=== PATIENT | male | born 1955 | race Caucasian/White ===

== ENCOUNTER 2022-01-19 05:45 | Inpatient (IN) | payer OTHER, MEDICARE ==
[~2022-01-19] VITALS: Ht 167.6 cm; Wt 50.3 kg
[2022-01-19 05:50] VITALS: BP 187/97
--- NOTE | 2022-01-19 05:50 | NUR ---
66 yo/m biba from [facility] for ALOC x1 hour. Pt presents aox3, per AMT baseline is aox3, gcs14, answers some questions but not others, wet cough noted, denies chest pain, reports back pain. No known fall or head trauma. Pt has shunt to R upper arm, missed dialysis on monday. bs 80. pt was given clonidine 0.1mg at [address] [facility]. pmh: htn, cva, Epilepsy, copd, ESRD (dialysis T, , S), UTI, unspecified brain disorder, (see chart) allergies: ativan
--- NOTE | 2022-01-19 05:57 | NUR ---
BIBA TAKEN TO BED #10
--- NOTE | 2022-01-19 06:07 | NUR ---
CODE BRAIN INITIATED PER DR. YUSUF. RADIOLOGY NOTIFIED
--- NOTE | 2022-01-19 06:10 | NUR ---
Dr. Alexander examining patient.
--- NOTE | 2022-01-19 06:11 | NUR ---
Tiffanie moore in [facility] - 01/19/22 at 0611 by ROJELIO PT TAKEN TO CT FOR CODE BRAIN
--- NOTE | 2022-01-19 06:11 | NUR ---
pt to ct via jagdish
[2022-01-19 06:39] LABS: BASOPHILS # (AUTO) 0.2 K/uL (0.00-0.22); BASOPHILS % (AUTO) 1.4 % (0.0-2.0); EOSINOPHILS # (AUTO) 0.2 K/uL (0-0.4); EOSINOPHILS % (AUTO) 1.4 % (0.0-4.0); HEMATOCRIT 27.3 % (36-52); HEMOGLOBIN 8.9 g/dL (12.0-18.0); LYMPHOCYTES # (AUTO) 0.8 K/uL (2.0-11.5); LYMPHOCYTES % (AUTO) 6.5 % (20.5-51.1); MEAN CORPUSCULAR HEMOGLOBIN 31 pg (27-31); MEAN CORPUSCULAR HGB CONC 33 g/dL (33-37); MEAN CORPUSCULAR VOLUME 95.4 fL (80-94); MONOCYTES # (AUTO) 0.7 K/uL (0.8-1.0); MONOCYTES % (AUTO) 5.6 % (1.7-9.3); NEUTROPHILS # (AUTO) 11.1 K/uL (1.8-7.7); NEUTROPHILS % (AUTO) 85.1 % (42.2-75.2); PLATELET COUNT (AUTO) 264 K/uL (140-450); RED BLOOD CELL COUNT(AUTO) 2.86 MIL/uL (4.20-6.10); RED CELL DISTRIBUTION WIDTH 20.5 % (11.6-13.7); WHITE BLOOD COUNT (AUTO) 13.1 K/uL (4.8-10.8)
[2022-01-19 07:03] LABS: PROTHROMBIN TIME 10.6 secs (10.8-13.4)
--- NOTE | 2022-01-19 07:08 | NUR ---
pt bp 197/113, olivad made aware.
[2022-01-19] MEDS ORDERED: hydrALAZINE 20 MG/ML VIAL IVP ONE (07:10)
[2022-01-19 07:14] LABS: ALBUMIN 3.5 g/dL (3.4-5.0); ANION GAP 21.3 (8-16); ASPARTATE AMINOTRANSFERASE 15 U/L (15-37); CARBON DIOXIDE 26.1 mmol/L (21-32); CHLORIDE 96 mmol/L (98-107); GFR ARICAN-AMERICAN 6 mL/min (>90); GLUCOSE 89 mg/dL (74-106); SODIUM SERUM 137 mmol/L (136-145); TOTAL BILIRUBIN 0.8 mg/dL (0.0-1.0)
--- NOTE | 2022-01-19 07:15 | NUR ---
Pt report given to angela valera. Transfer of care at this time.
[2022-01-19 07:30] LABS: POTASSIUM 6.4 mmol/L (3.5-5.1); UREA NITROGEN, BLOOD 94 mg/dL (7-18)
[2022-01-19 07:31] LABS: CREATININE 10.7 mg/dL (0.6-1.3)
[2022-01-19] MEDS ORDERED: SODIUM ZIRCONIUM CYCLOSILICATE 10 GM POWD.PACK PO ONE (07:50)
[2022-01-19] MEDS ORDERED: DEXTROSE 50% 50 ML SYR IVP ONE (07:50)
[2022-01-19] MEDS ORDERED: INSULIN REGULAR, HUMAN 100 UNIT/ML VIAL SUBQ ONE (07:50)
[2022-01-19] MEDS ORDERED: SODIUM BICARBONATE 8.4% PFS 50 MEQ/50 ML SYR IVP ONE (07:50)
[2022-01-19] MEDS ORDERED: ONDANSETRON 4 MG/2 ML VIAL IVP PRN (09:20)
[2022-01-19] MEDS ORDERED: ACETAMINOPHEN 325 MG TAB PO PRN (09:20)
[2022-01-19 09:43] LABS: APPEARANCE,URINE CLEAR (CLEAR); BILIRUBIN,URINE NEGATIVE (NEGATIVE); BLOOD, URINE TRACE-I (NEGATIVE); COLOR,URINE YELLOW (YELLOW); LEUKOCYTE ESTERASE ,URINE NEGATIVE (NEGATIVE); NITRITE, URINE NEGATIVE (NEGATIVE); PH,URINE 8.5 (5.0-9.0); UGLUCOSE TRACE (NEGATIVE)
[2022-01-19 09:54] LABS: BARBITURATE, URINE NEGATIVE ng/ml (NEG <=200); BENZODIAZEPINE, URINE NEGATIVE ng/mL (NEG <=200); CANNABINOID, URINE NEGATIVE ng/mL (NEG <=50); COCAINE, URINE NEGATIVE ng/mL (NEG <=300); OPIATE, URINE NEGATIVE ng/mL (NEG <=2000); PHENCYCLIDINE SCREEN,URINE NEGATIVE ng/mL (NEG <=25)
--- NOTE | 2022-01-19 10:10 | NUR ---
picc line nurse at bedside
--- NOTE | 2022-01-19 10:34 | NUR ---
2 lumen picc line 39 in left upper arm, xray confirmed placement. line is okay to use md called for stat dialysis at this time.
[2022-01-19 11:47] VITALS: BP 157/108
--- NOTE | 2022-01-19 12:07 | NUR ---
Patient will be admitted to care of Emre THOMAS. Admited to Telemetry. Will go to room 111B. Belongings list completed. Report to TROY Rodas.
[2022-01-19 16:00] VITALS: BP 157/71
[2022-01-19] MEDS: EPOETIN ALFA-EPBX 10,000 UNITS/ML VIAL IV SCH (16:59)
--- NOTE | 2022-01-19 19:48 | NUR ---
SBAR REPORT GIVEN TO NIGHT RN, ALL CARES ENDORSED.
[2022-01-19 20:00] VITALS: BP 148/98
--- NOTE | 2022-01-19 20:00 | NUR ---
OPENING NOTE Pt presents AOX3, know's he is in the hospital but not sure why. pt has l u/a PICC. Pt has shunt to R upper arm with (+) thrill and bruit. pt had HD today and 2L was removed. Pt in bed with no distress and all safety measures are in place.
[2022-01-20] VITALS: BP 142/99
[2022-01-20] MEDS ORDERED: hydrALAZINE 20 MG/ML VIAL IVP PRN (05:05)
--- NOTE | 2022-01-20 07:15 | NUR ---
SBAR report received from night RN, all cares assumed.
[2022-01-20 07:22] LABS: BASOPHILS # (AUTO) 0.1 K/uL (0.00-0.22); BASOPHILS % (AUTO) 0.5 % (0.0-2.0); EOSINOPHILS # (AUTO) 0.1 K/uL (0-0.4); EOSINOPHILS % (AUTO) 0.5 % (0.0-4.0); HEMATOCRIT 26.6 % (36-52); HEMOGLOBIN 8.7 g/dL (12.0-18.0); LYMPHOCYTES # (AUTO) 0.7 K/uL (2.0-11.5); LYMPHOCYTES % (AUTO) 4.6 % (20.5-51.1); MEAN CORPUSCULAR HEMOGLOBIN 31 pg (27-31); MEAN CORPUSCULAR HGB CONC 33 g/dL (33-37); MEAN CORPUSCULAR VOLUME 94.9 fL (80-94); MONOCYTES # (AUTO) 0.9 K/uL (0.8-1.0); MONOCYTES % (AUTO) 6.2 % (1.7-9.3); NEUTROPHILS # (AUTO) 12.4 K/uL (1.8-7.7); NEUTROPHILS % (AUTO) 88.2 % (42.2-75.2); PLATELET COUNT (AUTO) 241 K/uL (140-450); RED CELL DISTRIBUTION WIDTH 20.6 % (11.6-13.7); WHITE BLOOD COUNT (AUTO) 14.1 K/uL (4.8-10.8)
[2022-01-20 07:45] LABS: ALBUMIN 3.2 g/dL (3.4-5.0); ANION GAP 19.7 (8-16); MAGNESIUM 3.1 mg/dL (1.8-2.4); POTASSIUM 4.7 mmol/L (3.5-5.1); TOTAL BILIRUBIN 0.7 mg/dL (0.0-1.0)
[2022-01-20 08:00] VITALS: BP 213/91
[2022-01-20] MEDS: DOCUSATE SODIUM 100 MG GELCAP PO SCH (08:05)
[2022-01-20 08:09] LABS: CREATININE 7.1 mg/dL (0.6-1.3)
--- NOTE | 2022-01-20 09:14 | NUR ---
PATIENT HAS BEEN SCREENED AND CATEGORIZED HIGH NUTRITION RISK. PATIENT WILL BE SEEN WITHIN 1-2 DAYS OF ADMISSION. 01/20/[address]
[2022-01-20] MEDS ORDERED: amLODIPine 5 MG TAB PO SCH (10:00)
[2022-01-20] MEDS: hydrALAZINE 20 MG/ML VIAL IVP PRN ×2 (10:42→17:24)
[2022-01-20 12:00] VITALS: BP 172/83
[2022-01-20] MEDS: MORPHINE SULFATE 4 MG/ML SYR IVP PRN ×3 (13:23→20:55)
[2022-01-20 16:00] VITALS: BP 190/110
--- NOTE | 2022-01-20 16:14 | NUR ---
01/20/22 RD INITIAL ASSESSMENT COMPLETED PLEASE REFER TO NUTRITION ASSESSMENT UNDER CARE ACTIVITY FOR ESTIMATED NUTRITIONAL NEEDS. 1. CONTINUE CARDIAC DIET TOLERATED -RECOMMEND ADDING RENAL RESTRICTIONS TO CURRENT DIET 2. MONITOR PO INTAKE AND WEIGHT CHANGES 3. RECOMMEND NEPRO BID AND YAIR BID PER RD PROTOCOL 4. RD TO FOLLOW-UP 2-3 DAYS, HIGH RISK RAMSES ADHIKARI, RD
--- NOTE | 2022-01-20 19:42 | NUR ---
SBAR REPORT GIVEN TO HARLEY SIMMONS, ALL CARES ENDORSED.
--- NOTE | 2022-01-20 19:45 | NUR ---
RECEIVED PATIENT FROM AM NURSE FOR CONTINUITY OF CARE. PT IS STABLE
[2022-01-20 20:00] VITALS: BP 188/77
[2022-01-20] MEDS: carvediloL 12.5 MG TAB PO SCH (20:56)
--- NOTE | 2022-01-20 21:30 | NUR ---
ALL SCHEDULED MEDICATIONS GIVEN,NO ADVERSE REACTIONS NOTED
--- NOTE | 2022-01-21 01:00 | NUR ---
PATIENT ASLEEP ALL SAFETY MEASURES IN PLAGE, NO DISTRESS NOTED
[2022-01-21 04:00] VITALS: BP 105/76
[2022-01-21] MEDS: hydrALAZINE 20 MG/ML VIAL IVP PRN ×2 (05:36→17:24)
[2022-01-21] MEDS: MORPHINE SULFATE 4 MG/ML SYR IVP PRN ×2 (05:37→15:44)
[2022-01-21 07:26] LABS: ALBUMIN 3.1 g/dL (3.4-5.0); ANION GAP 15.6 (8-16); CARBON DIOXIDE 27.6 mmol/L (21-32); MAGNESIUM 3.4 mg/dL (1.8-2.4); POTASSIUM 5.2 mmol/L (3.5-5.1); TOTAL BILIRUBIN 0.6 mg/dL (0.0-1.0)
--- NOTE | 2022-01-21 07:30 | NUR ---
RECEIVED REPORT FROM NIGHTSHIFT NURSE HARLEY FOR CONTINUITY OF CARE. PT IN STABLE CONDITION, A/OX3, BREATHING EVEN, REGULAR, AND UNLABORED ON 4L NC. PICC ON LEFT UPPER ARM NOTED, AV SHUNT ON RIGHT UPPER ARM BRUIT AND THRILL PRESENT. PT CONTINENT OF THE BOWEL AND BLADDER, DRESSINGS NOTED ON LEFT LOWER ARM, BUTTOCKS AND HEAD.
[2022-01-21 07:54] LABS: CREATININE 8.1 mg/dL (0.6-1.3)
[2022-01-21 08:00] VITALS: BP 204/85
[2022-01-21 08:13] LABS: BASOPHILS # (AUTO) 0.1 K/uL (0.00-0.22); BASOPHILS % (AUTO) 0.6 % (0.0-2.0); EOSINOPHILS # (AUTO) 0.4 K/uL (0-0.4); EOSINOPHILS % (AUTO) 3.7 % (0.0-4.0); HEMATOCRIT 26.5 % (36-52); HEMOGLOBIN 8.7 g/dL (12.0-18.0); LYMPHOCYTES # (AUTO) 0.8 K/uL (2.0-11.5); LYMPHOCYTES % (AUTO) 7.6 % (20.5-51.1); MEAN CORPUSCULAR HEMOGLOBIN 31 pg (27-31); MEAN CORPUSCULAR HGB CONC 33 g/dL (33-37); MEAN CORPUSCULAR VOLUME 95.1 fL (80-94); MONOCYTES # (AUTO) 0.9 K/uL (0.8-1.0); MONOCYTES % (AUTO) 8.1 % (1.7-9.3); NEUTROPHILS # (AUTO) 8.9 K/uL (1.8-7.7); PLATELET COUNT (AUTO) 212 K/uL (140-450); RED BLOOD CELL COUNT(AUTO) 2.79 MIL/uL (4.20-6.10); WHITE BLOOD COUNT (AUTO) 11.1 K/uL (4.8-10.8)
[2022-01-21] MEDS ORDERED: ISOSORBIDE MONONITRATE 30 MG TABER PO SCH (08:40)
[2022-01-21] MEDS: HYDROcodone/APAP 5/325 MG 1 TAB TAB PO PRN ×2 (08:44→17:19)
[2022-01-21] MEDS: carvediloL 12.5 MG TAB PO SCH ×2 (08:44→21:02)
[2022-01-21] MEDS: DOCUSATE SODIUM 100 MG GELCAP PO SCH (08:44)
[2022-01-21] MEDS: amLODIPine 5 MG TAB PO SCH (08:45)
--- NOTE | 2022-01-21 08:45 | NUR ---
RUG RENOVATOR REPORTED PT'S BP 204/85 AFTER RETESTING 2X. PAGED [address] STANTON CONCERNING PT ALREADY HAVING RECEIVED PRN HYDRALAZINE 10MG Q4HR AT 0536 AND THE REASSESSMENT AT 0627 SHOWED THE BP AT 105/76. DR. STANTON ORDERED ISOSORBIDE MONONITRATE 30MG PO ONCE. PT WAS ALSO COMPLAINING OF SEVERE HEADACHE 9/ AND GIVEN PRN NORCO.
--- NOTE | 2022-01-21 09:08 | NUR ---
WOUND CARE EVALUATION NOTE: WOUND ASSESSMENT DONE ON THIS 66 Y/O PT ADMITTED WITH HYPERTENSIVE SBP 180S. PT. IS FROM SNF WITH PAST MEDICAL HX INCLUDES CHF, COPD, END-STAGE RENAL DISEASE ON HD, PREVIOUS CVA WITH RIGHT SIDED HEMIAPLASIA, THYROID DISEASE, BPH, HEPATITIS, ANEMIA, ASTHMA, CHRONIC ENCEPHALOPATHY. ALL ABOVE INFORMATION OBTAINED FROM ADMISSION H&P. PT. ADMITTED WITH LOW KATHERINE SCALE AND SACRAL PRESSURE INJURY AND MULTIPLE SKIN TEARS TO ARMS. DRY SCABS TO TRUNK OF BODY AND EXTREMITIES.DRY STABLE SCABS. OVERALL SKIN THIN FRAGILE AND EASILY TO TORN. WITH BMI 17.9.PLAN OF CARE DISCUSSED WITH PT. PT VERBALIZES UNDERSTANDING, NEED REINFORCEMENT. INTEGUMENTARY: -MULTIPLE SKIN TEARS TO LEFT ARM WITH LARGEST TO LEFT ELBOW 5X3X0.1CM WOUND BEDS PINK AND MOIST MARILEE-WOUND SKIN ECCHYMOSIS, THIN. PAIN 0/10 -SACRAL COCCYX PRESSURE INJURY 5X5CM NON-BLANCHABLE REDNESS, COCCYX BONE SKIN THIN AND MOIST, INTACT. -BILATERAL HEELS BLANCHABLE REDNESS, MUSHY RECOMMENDATIONS: -CLEANSE SKIN TEARS TO EXTREMITIES APPLY ADAPTIC DRESSING AND COVER WITH DRY DRESSING QD AND PRN IF SOILING - APPLY SKIN PREP TO RIGHT AND LEFT HEELS BID AND TRANSLATOR INTERPRETER, OFFLOADING WITH HEEL RAISERS -APPLY FORM DRESSING TO SACRALCOCCYX DAILY AND PRN IF SOILING -POSITIONING: TURN AND REPOSITION PATIENT Q 2H OR SOONER USE PILLOWS TO KEEP BONY PROMINENCES FROM DIRECT CONTACT WITH SURFACES USE REPOSITIONING WEDGES TO PROVIDE 30-DEGREE ANGLE FOR SIDE LYING POSITIONS OFFLOADING OR FOAM DRESSING TO ALL TUBING TO PREVENT MEDICAL DEVICES RELATED PRESSURE INJURY -RE-EVALUATING AND MANAGING INCONTINENCE MONITOR SKIN CONDITION DURING POSITION CHANGE DO NOT MASSAGE REDNESS, BONY PROMINENCES FREQUENT MARILEE-CARE AND PROVIDE BARRIER CREAMS PRN IF SOILING MOISTURE CONTROL BY OFFER BED SAILNAS/URINAL /ABSORBENT PAD TO WICK AND HOLD MOISTURE KEEP SKIN DRY AND PROTECT FROM FRICTION -MANAGE FRICTION/SHEAR/MOBILITY KEEP HOB AT THE LOWEST LEVEL OF ELEVATION NO MORE THAN 30 DEGREES UNLESS OTHERWISE CONTRAINDICATED USE LIFT SHEET OR TRANSFER DEVICE TO MOVE PATIENT AND PREVENT LATERAL SHEER. PROTECT HEELS, ELBOWS BONY PROMINENCES WITH SKIN BERRIES OR FOAM DRESSING IF EXPOSED TO FRICTION OFFLOAD BILATERAL HEELS BY PLACING PILLOWS UNDER CALVES AT ALL TIMES, UNLESS OTHERWISE CONTRAINDICATED -PRESSURE REDISTRIBUTION SURFACE THERAPY HENOK ISOFLEX MATTRESS -NUTRITION: PLEASE FOLLOW RD RECOMMENDATIONS AND OFFER NUTRITION SUPPLEMENTS IF ORDERED.
--- NOTE | 2022-01-21 09:50 | NUR ---
REASSESSED PT'S BP, READING SHOWS IT AT 94/54.
--- NOTE | 2022-01-21 12:07 | NUR ---
REASSESSED PT'S BP. BP 120/60.
[2022-01-21] MEDS: EPOETIN ALFA-EPBX 10,000 UNITS/ML VIAL IV SCH (13:30)
--- NOTE | 2022-01-21 14:00 | NUR ---
PT VISUALLY ASSESSED, NO SIGNS OF DISTRESS NOTED.
--- NOTE | 2022-01-21 14:04 | NUR ---
DC PLANNIN YRS OLD MALE PATIENT WAS ADMITTED FROM [facility] WITH A DX OF FLUID OVERLOAD /ENCEPHALOPATHY. PATIENT HAS A HX OF CHF,COPD, ESRD ON HEMODIALYSIS. CXRAY SHOWED BILATERAL INTERSTITIAL AND PATCHY HAZY OPACITIES, SUSPICIOUS FOR PULMONARY EDEMA. CT BRAIN NO EVIDENCE OF ACUTE INTRACRANIAL HEMORRHAGE. ADMINISTERED IVF, IV ABX LEVAQUIN AND CONTINUED HOME MEDS. CONSULTED WITH NEPHRO. DC PLAN TO RETURN TO [facility] WHEN STABLE. CM TO FOLLOW Addendum: 01/24/22 at 1429 by Brenda Dao RN DC PLANNING: BP STILL HIGH BP 174/94. PER NEPHRO WILL NEED FREQUENT DIALYSIS FOR VOLUME MANAGEMENT, CONTINUED ADJUSTMENTS TO BP MEDS. CM TO FOLLOW Addendum: 01/25/22 at 1304 by Brenda Dao RN DC PLANNING: PATIENT GOT ACCEPTED AT [facility] CAN GO TO ROOM 111B UNDER THE CARE OF DR CALVILLO. ARRANGED TRANSPORT WITH [facility]SP[facility] DIPLOMATIC INTERPRETER TIME 1500. NOTIFIED RAUL SIMMONS. Addendum: 01/25/22 at 1441 by Brenda Dao RN DC PLANNING: CALLED [facility] SPOKE WITH THE INTAKE NOTIFIED HER THAT PT HAD DIALYSIS YESTERDAY 01/24/22 AND WILL BE DISCHARGED TO [facility] TODAY PER INTAKE PT WILL CONTINUE HD ON TTHS AT 10:00 AM, NO NEED TO CHANGE DIALYSIS DATE AND TIME. CALLED [facility]SP[facility] FOR HEMODIALYSIS WILL BE THE SAME. CM TO FOLLOW
--- NOTE | 2022-01-21 16:00 | NUR ---
PT VISUALLY ASSESSED, NO SIGNS OF DISTRESS NOTED.
--- NOTE | 2022-01-21 17:24 | NUR ---
PER HOME HEALTH TRAVEL OT, PT'S BP WAS 165/75 AND COMPLAINING OF HEADACHE 8/. PRN HYDRALAZINE AND NORCO GIVEN.
--- NOTE | 2022-01-21 18:44 | NUR ---
REASSESSED PT'S BP, BP WAS 194/79. DR. STANTON WAS PAGED.
--- NOTE | 2022-01-21 19:15 | NUR ---
ENDORSED PT TO NIGHTSHIFT NURSE FOR CONTINUITY OF CARE. NIGHTSHIFT AWARE OF PT'S LAST BP AND AWAITING PAGE FROM DR. STANTON.
--- NOTE | 2022-01-21 19:16 | NUR ---
RECEIVED ENDORSEMENT FROM TROY IVORY FOR CONTINUITY OF CARE. PATIENT IS STABLE AND AWAKE. A&OX3. SOME CONFUSION NOTED. ABLE TO FOLLOW COMMANDS. VERBALLY RESPONSIVE AND ABLE TO COMMUNICATE NEEDS. DENIES PAIN. ON 4L VIA NC WITH NO APPARENT S/SX OF ACUTE DISTRESS. RESPIRATIONS EVEN AND UNLABORED. ON BEDREST. INCONTINENT OF VOID AND BM BUT HAS A BEDSIDE URINAL. PATIENT HAS ARCADIO PICC LINE PATENT/INTACT SL. AV THURMAN IN MICHEAL. PER TROY IVORY, PATIENT HAD A HD SESSION DONE TODAY WITH AN OUTPUT OF 2.5L. PLAN OF CARE AND COMMUNICATION BOARD UPDATED. ALL SAFETY MEASURES IN PLACE. BED IN LOW/LOCKED POSITION. CALL LIGHT WITHIN REACH. WILL CONTINUE TO MONITOR.
[2022-01-21 20:00] VITALS: BP 97/66
--- NOTE | 2022-01-21 21:10 | NUR ---
REDIRECTED PATIENT BACK TO BED. SOME CONFUSION NOTED. RE-ORIENTED TO TIME AND PLACE. ADMINISTERED SCHEDULED MEDICATIONS PER MD ORDER. TOLERATED WELL. DENIES PAIN. RESPIRATIONS EVEN AND UNLABORED WITH NO APPARENT S/SX OF ACUTE DISTRESS. SNACKS PROVIDED PER REQUEST. COMMUNICATION BOARD UPDATED. ALL SAFETY MEASURES IN PLACE. CALL LIGHT WITHIN REACH. WILL CONTINUE TO MONITOR.
[2022-01-21] MEDS: lisinopriL 10 MG TAB PO SCH (22:00)
[2022-01-21] MEDS ORDERED: QUEtiapine FUMARATE 25 MG TAB PO PRN (22:10)
--- NOTE | 2022-01-21 22:10 | NUR ---
PATIENT KEEPS YELLING "HELP ME" REPETITIVELY. REORIENTED PATIENT TO TIME AND PLACE. PROVIDED THERAPEUTIC ENVIRONMENT BY REPOSITIONING FOR COMFORT AND DIMMING LIGHTS BUT PATIENT APPEARS TO BE RESTLESS AND KEEPS GETTING OUT OF BED. CONTACTED DR. STANTON FOR PRN MEDICATION. ADMINISTERED AND TOLERATED WELL. WILL CONTINUE TO MONITOR.
--- NOTE | 2022-01-21 23:05 | NUR ---
PATIENT IS AWAKE AND STABLE. PATIENT APPEARS TO BE SLIGHTLY CALMER BUT STILL ATTEMPTING TO GET OUT OF BED. REDIRECTED PATIENT TO TIME AND PLACE. PATIENT KEEPS STATING, "I WANT TO GO HOME..." PATIENT LISTENED TO VERBAL COMMAND TO STAY IN BED. DENIES PAIN. RESPIRATIONS EVEN AND UNLABORED WITH NO APPARENT S/SX OF ACUTE DISTRESS. COMMUNICATION BOARD UPDATED. ALL SAFETY MEASURES IN PLACE. CALL LIGHT WITHIN REACH. WILL CONTINUE TO MONITOR.
[2022-01-22] MEDS: QUEtiapine FUMARATE 25 MG TAB PO SCH ×2 (00:58→21:09)
--- NOTE | 2022-01-22 01:10 | NUR ---
PATIENT REMAINS TO BE RESTLESS AND ATTEMPTS TO GET OUT OF BED. RE-ORIENTED TO TIME AND PLACE. CONTACTED DR. STANTON ABOUT SEROQUEL NOT EFFECTIVE. PER DR. STANTON, ADMINISTER ANOTHER SEROQUEL 25MG ONCE. TOLERATED WELL. DENIES PAIN. RESPIRATIONS EVEN AND UNLABORED WITH NO APPARENT S/SX OF ACUTE DISTRESS. COMMUNICATION BOARD UPDATED. ALL SAFETY MEASURES IN PLACE. CALL LIGHT WITHIN REACH. WILL CONTINUE TO MONITOR.
--- NOTE | 2022-01-22 03:10 | NUR ---
PATIENT IS AWAKE AND RESTING IN BED. APPEARS TO BE CALMER AND DOES NOT ATTEMPT TO GET OUT OF BED AT THIS TIME. FLACC=0. RESPIRATIONS EVEN AND UNLABORED WITH NO APPARENT S/SX OF ACUTE DISTRESS. COMMUNICATION BOARD UPDATED. ALL SAFETY MEASURES IN PLACE. CALL LIGHT WITHIN REACH. WILL CONTINUE TO MONITOR.
[2022-01-22 04:00] VITALS: BP 148/77
--- NOTE | 2022-01-22 05:15 | NUR ---
PT IS AWAKE AND STABLE. SOME CONFUSION NOTED. REORIENTED TO TIME AND HOSPITAL ENVIRONMENT. PT WAS NOT ABLE TO GET ANY SLEEP AT ALL THROUGHOUT THE NIGHT. DENIES PAIN. RESPIRATIONS EVEN AND UNLABORED W NO APPARENT S/SX OF ACUTE DISTRESS. ALL NEEDS MET. COMMUNICATION BOARD UPDATED. ALL SAFETY MEASURES IN PLACE. CALL LIGHT WITHIN REACH. WILL CONTINUE TO MONITOR.
--- NOTE | 2022-01-22 07:10 | NUR ---
ENDORSED PT TO TIM DENT FOR CONTINUITY OF CARE. PT IS STABLE.
--- NOTE | 2022-01-22 07:11 | NUR ---
RECEIVED REPORT FROM ENDLESS STEAMER TENDER NURSE FOR CONTINUITY OF CARE. PT IS AWAKE, IN BED. RESPIRATIONS EVEN AND UNLABORED ON ROOM AIR. NO DISTRESS NOTED. PT HAS PICC LINE AT ARCADIO DOUBLE LUMEN, MICHEAL AV SHUNT. PT IS INCONTINENT TO BOTH BOWEL AND BLADDER, HAS URINAL AT BEDSIDE. NOTED DRESSINGS ON LEFT LOWER ARM, BUTTOCKS AND HEAD. CALL LIGHT WITHIN REACH. SAFETY PRECAUTIONS IN PLACE. WILL CONTINUE TO MONITOR.
[2022-01-22 07:16] LABS: ALBUMIN 3.3 g/dL (3.4-5.0); ANION GAP 15.5 (8-16); CARBON DIOXIDE 26.8 mmol/L (21-32); MAGNESIUM 2.9 mg/dL (1.8-2.4); POTASSIUM 4.3 mmol/L (3.5-5.1); TOTAL BILIRUBIN 0.6 mg/dL (0.0-1.0)
--- NOTE | 2022-01-22 07:24 | NUR ---
RECEIVED CRITICAL VALUE FROM LAB. BUN 61 AND CREATININE 5.7. PT IS HEMODIALYSIS PT.
[2022-01-22 07:25] LABS: CREATININE 5.7 mg/dL (0.6-1.3)
[2022-01-22 07:30] LABS: HEMATOCRIT 26.8 % (36-52); HEMOGLOBIN 8.7 g/dL (12.0-18.0); MEAN CORPUSCULAR HEMOGLOBIN 31 pg (27-31); MEAN CORPUSCULAR HGB CONC 32 g/dL (33-37); PLATELET COUNT (AUTO) 182 K/uL (140-450); RED BLOOD CELL COUNT(AUTO) 2.82 MIL/uL (4.20-6.10); RED CELL DISTRIBUTION WIDTH 20.3 % (11.6-13.7); WHITE BLOOD COUNT (AUTO) 18.2 K/uL (4.8-10.8)
[2022-01-22 08:00] VITALS: BP 202/101
--- NOTE | 2022-01-22 08:00 | NUR ---
PT REQUESTED TO BE PLACED ON NC. REPOSITIONED PT. PT SITTING COMFORTABLY IN BED. NO DISTRESS NOTED. SAFETY PRECAUTIONS IN PLACE.
[2022-01-22] MEDS: DOCUSATE SODIUM 100 MG GELCAP PO SCH (09:13)
[2022-01-22] MEDS: lisinopriL 10 MG TAB PO SCH (09:14)
[2022-01-22] MEDS: amLODIPine 5 MG TAB PO SCH (09:14)
[2022-01-22] MEDS: carvediloL 12.5 MG TAB PO SCH ×2 (09:15→21:09)
--- NOTE | 2022-01-22 09:37 | NUR ---
ADMINISTERED SCHEDULED MORNING MEDS. PT TEACHING ABOUT MEDS GIVEN. PT VERBALIZED UNDERSTANDING. PT ON 2L NC SATTING AT 99%. PT ON HIGH MICHAELS'S IN BED. CALL LIGHT WITHIN REACH. SAFETY PRECAUTIONS IN PLACE. WILL CONTINUE TO MONITOR.
[2022-01-22 10:00] LABS: LYMPHOCYTES % (AUTO) 3.8 % (20.5-51.1); PLATELET COUNT,MANUAL 176 K/uL (150-450)
[2022-01-22 10:01] LABS: BASOPHILS % (AUTO) 0.1 % (0.0-2.0); EOSINOPHILS % (AUTO) 0.1 % (0.0-4.0); LYMPHOCYTES # (AUTO) 0.7 K/uL (2.0-11.5); LYMPHOCYTES % (MANUAL) 2 % (20-46); MONOCYTES # (AUTO) 1.3 K/uL (0.8-1.0); MONOCYTES % (MANUAL) 6 % (5-12); MYELOCYTES % 1 % (0-0); NEUTROPHILS # (AUTO) 16.2 K/uL (1.8-7.7)
[2022-01-22] MEDS: hydrALAZINE 20 MG/ML VIAL IVP PRN (10:27)
--- NOTE | 2022-01-22 10:27 | NUR ---
PT SBP AT 200, HR 70. RN MILAGROS ADMINISTERED IV HYDRALAZINE. NO ADVERSE REACTION NOTED. WILL REASSESS AFTER AN HR.
--- NOTE | 2022-01-22 13:47 | NUR ---
DID ROUNDS. PT SITTING IN BED, EATING LUNCH. NO DISTRESS NOTED. CALL LIGHT WITHIN REACH. SAFETY PRECAUTIONS IN PLACE. WILL CONTINUE TO MONITOR.
--- NOTE | 2022-01-22 15:32 | NUR ---
ROUNDED ON PT FOR LITHOGRAPHIC PRINTING MACHINIST FLORSAN, PT COMPLAINED OF HEADACHE, PRN TYLENOL WAS GIVEN.
[2022-01-22 16:00] VITALS: BP 169/83
--- NOTE | 2022-01-22 16:32 | NUR ---
REASSESSING PT PAIN. PT STATED HIS PAIN NOW 9/10 AT THE BACK OF HIS HEAD. SBP AT 160. HR 73. WILL INFORM RN.
[2022-01-22] MEDS: MORPHINE SULFATE 4 MG/ML SYR IVP PRN (16:59)
--- NOTE | 2022-01-22 16:59 | NUR ---
RN ADMINISTERED PRN PAIN MED ORDERED.
--- NOTE | 2022-01-22 17:21 | NUR ---
PT TRYING TO GET OUT OF BED. PT STATED HE WANTS TO GO TO THE REST ROOM. REDIRECTED PT TO GO BACK TO BED. PT HAD LARGE BOWEL MOVEMENT. CLEAN PT, PT REMAINED CLEAN AND DRY. CALL LIGHT WITHIN REACH. SAFETY PRECAUTIONS IN PLACE.
--- NOTE | 2022-01-22 19:27 | NUR ---
ENDORSED PT TO OIM ARCHITECT NURSE FOR CONTINUITY OF CARE. ALL NEEDS MET THROUGHOUT SHIFT. PT IS STABLE.
--- NOTE | 2022-01-22 19:28 | NUR ---
RECEIVED ENDORSEMENT FROM TIM DENT FOR CONTINUITY OF CARE. PT IS AWAKE AND STABLE. A&OX2. SOME CONFUSION NOTED. VERBALLY RESPONSIVE AND ABLE TO FOLLOW COMMANDS. ON 2L VIA NC W NO APPARENT S/SX OF ACUTE DISTRESS. RESPIRATIONS EVEN AND UNLABORED. DENIES PAIN. ON BEDREST. ARCADIO PICCLINE PATENT/INTACT SL. INCONTINENT OF VOID AND BM. PLAN OF CARE AND COMMUNICATION BOARD UPDATED. ALL SAFETY MEASURES IN PLACE. BED IN LOW/LOCKED POSITION. CALL LIGHT WITHIN REACH. WILL CONTINUE TO MONITOR.
[2022-01-22 20:00] VITALS: BP 148/91
--- NOTE | 2022-01-22 21:10 | NUR ---
ADMINISTERED SCHEDULED MEDICATION PER MD ORDER. TOLERATED WELL. DENIES PAIN. RESPIRATIONS EVEN AND UNLABORED W NO APPARENT S/SX OF ACUTE DISTRESS. SNACKS PROVIDED PER PT REQUEST. COMMUNICATION BOARD UPDATED. ALL SAFETY MEASURES IN PLACE. CALL LIGHT WITHIN REACH. WILL CONTINUE TO MONITOR.
--- NOTE | 2022-01-22 23:10 | NUR ---
PT IS STABLE AND ASLEEP. CHEST IS RISING AND FALLING EVENLY. RESPIRATIONS EVEN AND UNLABORED W NO APPARENT S/SX OF ACUTE DISTRESS. COMMUNICATION BOARD UPDATED. ALL SAFETY MEASURES IN PLACE. CALL LIGHT WITHIN REACH. WILL CONTINUE TO MONITOR.
--- NOTE | 2022-01-23 01:10 | NUR ---
CLEANED AND CHANGED PT. TOLERATED WELL. DENIES PAIN. RESPIRATIONS EVEN AND UNLABORED W NO APPARENT S/SX OF ACUTE DISTRESS. COMMUNICATION BOARD UPDATED. ALL SAFETY MEASURES IN PLACE. CALL LIGHT WITHIN REACH. WILL CONTINUE TO MONITOR.
--- NOTE | 2022-01-23 03:10 | NUR ---
PT IS STABLE AND ASLEEP IN SUPINE POSITION. CHEST IS RISING AND FALLING SYMMETRICALLY. RESPIRATIONS EVEN AND UNLABORED W NO APPARENT S/SX OF ACUTE DISTRESS. COMMUNICATION BOARD UPDATED. ALL SAFETY MEASURES IN PLACE. CALL LIGHT WITHIN REACH. WILL CONTINUE TO MONITOR.
[2022-01-23 04:00] VITALS: BP 158/93
--- NOTE | 2022-01-23 05:10 | NUR ---
CLEANED AND CHANGED PT'S LINEN, GOWN, AND PULLUP. TOLERATED WELL. DENIES PAIN. RESPIRATIONS EVEN AND UNLABORED W NO APPARENT S/SX OF ACUTE DISTRESS. ALL NEEDS MET AT THIS TIME. COMMUNICATION BOARD UPDATED. ALL SAFETY MEASURES IN PLACE. CALL LIGHT WITHIN REACH. WILL CONTINUE MONITOR.
--- NOTE | 2022-01-23 05:49 | NUR ---
Patient's Plan of Care was discussed and reviewed with MEMORIAL DESIGNER: KEITH/ Emily BOWMAN RN
[2022-01-23] MEDS: guaiFENesin/CODEINE 100/10MG 5 ML UDC PO PRN ×2 (07:01→23:59)
--- NOTE | 2022-01-23 07:10 | NUR ---
ENDORSED PT TO TROY CHACKO FOR CONTINUITY OF CARE. PT IS STABLE.
[2022-01-23 07:20] LABS: BASOPHILS % (AUTO) 0.3 % (0.0-2.0); EOSINOPHILS # (AUTO) 0.1 K/uL (0-0.4); EOSINOPHILS % (AUTO) 0.5 % (0.0-4.0); HEMOGLOBIN 8.5 g/dL (12.0-18.0); LYMPHOCYTES # (AUTO) 0.7 K/uL (2.0-11.5); LYMPHOCYTES % (AUTO) 5.2 % (20.5-51.1); MEAN CORPUSCULAR HEMOGLOBIN 31 pg (27-31); MEAN CORPUSCULAR HGB CONC 33 g/dL (33-37); MEAN CORPUSCULAR VOLUME 94.4 fL (80-94); MONOCYTES # (AUTO) 0.7 K/uL (0.8-1.0); MONOCYTES % (AUTO) 5.5 % (1.7-9.3); NEUTROPHILS # (AUTO) 11.9 K/uL (1.8-7.7); NEUTROPHILS % (AUTO) 88.5 % (42.2-75.2); PLATELET COUNT (AUTO) 200 K/uL (140-450); RED BLOOD CELL COUNT(AUTO) 2.76 MIL/uL (4.20-6.10); WHITE BLOOD COUNT (AUTO) 13.4 K/uL (4.8-10.8)
--- NOTE | 2022-01-23 07:25 | NUR ---
RECEIVED REPORT FROM WATCH REPAIRER APPRENTICE NURSE: PATIENT RECEIVED ASLEEP AND BREATHING EFFORTLESSLY WITH O2 IN PROGRESS AT 2L VIA NC. IV ACCESS SITE IS 2-LUMEN PICC LINE--SAME INTACT. WILL CONTINUE PLAN OF CARE AND MAINTAIN SAFETY.
[2022-01-23 07:52] LABS: ALBUMIN 3.3 g/dL (3.4-5.0); ANION GAP 20.6 (8-16); CARBON DIOXIDE 23.6 mmol/L (21-32); MAGNESIUM 3.2 mg/dL (1.8-2.4); POTASSIUM 5.2 mmol/L (3.5-5.1); TOTAL BILIRUBIN 0.6 mg/dL (0.0-1.0)
[2022-01-23 08:01] LABS: CREATININE 6.5 mg/dL (0.6-1.3)
--- NOTE | 2022-01-23 08:10 | NUR ---
AT 0800 RECEIVED CALL FROM LAB WITH CRITICAL LAB RESULTS: BUN-84 & CREATININE-6.5. ON-CALL , DR ARNOLD INFORMED. AWAITING RESPONSE. Addendum: 01/23/22 at 1221 by Annabella Martinez RN NO NEW ORDERS.
[2022-01-23] MEDS: DOCUSATE SODIUM 100 MG GELCAP PO SCH (09:07)
[2022-01-23] MEDS: NIFEdipine 30 MG TABER PO SCH (09:07)
[2022-01-23] MEDS: lisinopriL 10 MG TAB PO SCH (09:08)
[2022-01-23] MEDS: carvediloL 12.5 MG TAB PO SCH ×2 (09:08→21:50)
[2022-01-23] MEDS: hydrALAZINE 20 MG/ML VIAL IVP PRN ×2 (09:11→12:20)
--- NOTE | 2022-01-23 09:15 | NUR ---
0800 BP REPORTED BY DRILLING FLUIDS SPECIALIST 208/100. BP RECHECKED BY RN--SAME WAS 200/100 WITH HR 74. ALL AM MEDS ADMIN ALONG WITH PRN APRESOLINE, ORDERED. WILL CONTINUE TO MONITOR PATIENT AND RECHECK BP IN AN HOUR. PATIENT IS ALERT AND ORIENTED X 2, VERBALIZES COMFORT, AND DENIES PAIN. PATIENT IS BREATHING EFFORTLESSLY ON O2 AT 2L VIA NC.
--- NOTE | 2022-01-23 10:15 | NUR ---
PATIENT'S BP RECHECKED--SAME IS 152/89, HR IS 64. BP CONTINUES TO VERBALIZE COMFORT AND SHOWS NO SIGNS OF DISTRESS.
--- NOTE | 2022-01-23 12:35 | NUR ---
IN-ROOM DIALYSIS STARTED.
--- NOTE | 2022-01-23 15:19 | NUR ---
01/23/22 RD FOLLOW UP COMPLETED. PLEASE REFER TO NUTRITION ASSESSMENT UNDER CARE ACTIVITY FOR ESTIMATED NUTRITIONAL NEEDS. 1. CONTINUE CARDIAC DIET TOLERATED 2. MONITOR PO INTAKE AND WEIGHT CHANGES 3. CONTINUE NEPRO BID AND YAIR BID PER RD PROTOCOL. 4. RD TO FOLLOW-UP 2-3 DAYS, HIGH RISK HARLEY BROWN RD
--- NOTE | 2022-01-23 15:35 | NUR ---
PER DIALYSIS NURSE, IN-ROOM DIALYSIS COMPLETED AT 1520ED. Addendum: 01/23/22 at 1637 by Annabella Martinez RN NOTE SAVED EARLY--SHOULD READ: PER DIALYSIS NURSE, IN-ROOM DIALYSIS COMPLETED AT 1530.
[2022-01-23 16:00] VITALS: BP 133/72
[2022-01-23] MEDS: HYDROcodone/APAP 5/325 MG 1 TAB TAB PO PRN ×2 (17:22→21:51)
--- NOTE | 2022-01-23 17:22 | NUR ---
PATIENT REPORTED HEADACHE, RATED 6/10. PRN NORCO ADMIN ORDERED. WILL MONITOR EFFECTIVENESS.
--- NOTE | 2022-01-23 18:20 | NUR ---
PATIENT VERBALIZED PAIN RELIEF.
--- NOTE | 2022-01-23 19:48 | NUR ---
PLAN OF CARE CONTINUED AND SAFETY MAINTAINED. PATIENT CONTINUES TO BREATHE EFFORTLESSLY ON 2L O2 VIA NC. ENDORSED PATIENT TO RACE STARTER NURSE.
--- NOTE | 2022-01-23 19:50 | NUR ---
RECEIVED PT FROM AM NURSE FOR CONTINUITY OF CARE. PT IS STABLE
--- NOTE | 2022-01-23 21:30 | NUR ---
ALL MEDICATIONS GIVEN AT THIS TIME,ALL SAFETY MEASURES IN PLACE
--- NOTE | 2022-01-24 01:00 | NUR ---
PATIENT ASLEEP,OPHTHALMOLOGY SURGICAL TECHNICIAN/SX OF DISTRESS NOTED,
[2022-01-24] MEDS: MORPHINE SULFATE 4 MG/ML SYR IVP PRN ×3 (01:51→13:51)
--- NOTE | 2022-01-24 03:00 | NUR ---
PATIENT IS AWAKE,NO COMPLAIN OF PAIN AT THIS TIME ,NO DISTRESS NOTED
[2022-01-24 04:00] VITALS: BP 174/94
[2022-01-24] MEDS: hydrALAZINE 20 MG/ML VIAL IVP PRN ×3 (04:04→09:17)
[2022-01-24] MEDS: guaiFENesin/CODEINE 100/10MG 5 ML UDC PO PRN (06:45)
--- NOTE | 2022-01-24 07:36 | NUR ---
ENDORSED PT TO AM NURSE FOR CONTINUITY OF CARE.PT IS STABLE
--- NOTE | 2022-01-24 08:00 | NUR ---
GOT REPORT FROM THE NIGHT NURSE ,PT IS AWAKE NO DISCOMFORT.[id number]
--- NOTE | 2022-01-24 08:23 | NUR ---
PT. WITH LOW KATHERINE SCALE AT HIGH RISK, CONTINUE TO FOLLOW PRESSURE INJURY PREVENTION INTERVENTIONS. -POSITIONING: TURN AND REPOSITION PATIENT Q 2H OR SOONER USE PILLOWS TO KEEP BONY PROMINENCES FROM DIRECT CONTACT WITH SURFACES USE REPOSITIONING WEDGES TO PROVIDE 30-DEGREE ANGLE FOR SIDE LYING POSITIONS OFFLOADING OR FOAM DRESSING TO ALL TUBING TO PREVENT MEDICAL DEVICES RELATED PRESSURE INJURY -RE-EVALUATING AND MANAGING INCONTINENCE MONITOR SKIN CONDITION DURING POSITION CHANGE DO NOT MASSAGE REDNESS, BONY PROMINENCES FREQUENT MARILEE-CARE AND PROVIDE BARRIER CREAMS PRN IF SOILING MOISTURE CONTROL BY OFFER BED SALINAS/URINAL /ABSORBENT PAD TO WICK AND HOLD MOISTURE KEEP SKIN DRY AND PROTECT FROM FRICTION -MANAGE FRICTION/SHEAR/MOBILITY KEEP HOB AT THE LOWEST LEVEL OF ELEVATION NO MORE THAN 30 DEGREE UNLESS OTHERWISE CONTRAINDICATED USE LIFT SHEET OR TRANSFER DEVICE TO MOVE PATIENT AND PREVENT LATERAL SHEER. PROTECT HEELS, ELBOWS BONY PROMINENCES WITH SKIN BERRIES OR FOAM DRESSING IF EXPOSED TO FRICTION OFFLOAD BILATERAL HEELS BY PLACING PILLOWS UNDER CALVES AT ALL TIMES, UNLESS OTHERWISE CONTRAINDICATED -PRESSURE REDISTRIBUTION SURFACE THERAPY HENOK ISOFLEX MATTRESS -NUTRITION: PLEASE FOLLOW RD RECOMMENDATIONS AND OFFER NUTRITION SUPPLEMENTS IF ORDERED. PLEASE CONTACT WOUND CARE NURSE FOR ANY QUESTION AND CHANGE OF WOUND CONDITION.
[2022-01-24] MEDS ORDERED: cloNIDine-TTS1 0.1 MG/24 HR 1 EA PATCH TD SCH (09:00)
[2022-01-24] MEDS: EPOETIN ALFA-EPBX 10,000 UNITS/ML VIAL IV SCH (09:02)
[2022-01-24] MEDS: lisinopriL 10 MG TAB PO SCH (09:03)
[2022-01-24] MEDS: DOCUSATE SODIUM 100 MG GELCAP PO SCH (09:06)
[2022-01-24] MEDS: NIFEdipine 30 MG TABER PO SCH (09:06)
[2022-01-24] MEDS: carvediloL 12.5 MG TAB PO SCH ×2 (09:17→20:48)
[2022-01-24] MEDS ORDERED: LEVOFLOXACIN 250 MG/D5 PREMIX 50 ML IV SCH (10:00)
[2022-01-24] MEDS ORDERED: NIFEdipine 30 MG TABER PO PRN (15:10)
--- NOTE | 2022-01-24 16:18 | NUR ---
HEMODIALYSIS IN PROGRESS STABLE RESTING COMFORTABLY ASLEEP EASILY AWAKENS NO DISTRESS NOTED GOOD CHEST RISE AIRWAY PATENT
--- NOTE | 2022-01-24 16:18 | NUR ---
RECEIVED ON SUPPLEMENTAL OXYGEN AT 3 LPM VIA NC SATURATION 97% TITRATED FIO2 TO 2 LPM
[2022-01-24 16:23] VITALS: BP 128/68
[2022-01-24] MEDS: HYDROcodone/APAP 5/325 MG 1 TAB TAB PO PRN ×2 (17:53→23:24)
--- NOTE | 2022-01-24 18:44 | NUR ---
pt done with dialysis 3litter out. now pt is talking to his brother.[id number]
[2022-01-24 20:00] VITALS: BP 106/63
[2022-01-24] MEDS: lisinopriL 20 MG TAB PO SCH (21:00)
--- NOTE | 2022-01-24 21:15 | NUR ---
Lisinopril not given patient's blood pressure is 115/67
--- NOTE | 2022-01-25 01:55 | NUR ---
Patient was not given potassium chloride because the potassium is within normal range. Will continue to monitorhim
[2022-01-25] MEDS: HYDROcodone/APAP 5/325 MG 1 TAB TAB PO PRN ×2 (03:44→08:10)
--- NOTE | 2022-01-25 07:23 | NUR ---
PATIENT WAS HANDED OVER TO PIPPA RODRIGEUZ RN TO CONTINUE WITH CARE
--- NOTE | 2022-01-25 07:28 | NUR ---
GOT REPORT FROM THE NIGHT NURSE, PT SLEEPING EASY BREATHING,LOOKS COMFORTABLE.[id number]
--- NOTE | 2022-01-25 07:49 | NUR ---
Report concerning this patient given to TROY Mcdaniel as AM TROY Winchester is not here yet.
[2022-01-25 08:00] VITALS: BP 140/92
[2022-01-25] MEDS: carvediloL 12.5 MG TAB PO SCH (08:10)
[2022-01-25] MEDS: lisinopriL 20 MG TAB PO SCH (08:10)
[2022-01-25] MEDS: DOCUSATE SODIUM 100 MG GELCAP PO SCH (08:15)
--- NOTE | 2022-01-25 09:27 | NUR ---
LOC AWAKE AND ALERT VERBALLY RESPONSIVE TO DISTILLATION OPERATOR HELPER VERBAL COMMANDS RECEIVED ON SUPPLEMENTAL OXYGEN AT 2 LPM VIA NC PMHX: COPD CHF ESRD WITH HEMODIALYSIS C/O SLIGHT SOB PATIENT AND NASAL DRYNESS FROM SUPPLEMENTAL OXYGEN USE; ADDED HUMIDIFIER; ASSESSMENT DONE; DISTILLATION OPERATOR HELPER TO CONTACT COVERING CRAPS DEALER FROM [facility]
--- NOTE | 2022-01-25 10:49 | NUR ---
CALLED [facility] [phone] [place]/EXCHANGE [facility]OVERING [facility] TODAY DR. BRITTANY REYES EXCHANGE TO PAGE FOREMENTIONED
--- NOTE | 2022-01-25 10:54 | NUR ---
REVIEWED PATIENT C/O SOB AND PMHX; NO CURRENT HHN THERAPY ORDERED DR. BRITTANY REYES CURRENTLY IN HOUSE MD TO ASSESS PATIENT AND ORDER HHN THERAPY IF NECESSITATED
[2022-01-25] MEDS ORDERED: ALBUTEROL SULFATE/IPRATROPIU 3 ML SOL IH PRN (11:00)
[2022-01-25] MEDS ORDERED: ALBUTEROL SULFATE/IPRATROPIU 3 ML SOL IH ONE (11:12)
[2022-01-25] MEDS ORDERED: ALUMINUM HYD/MAG/SIMETHICONE 30 ML UDC PO PRN (12:00)
[2022-01-25] MEDS ORDERED: CARV12.52 PO (12:06)
[2022-01-25] MEDS ORDERED: DOCU-299 PO (12:06)
[2022-01-25] MEDS ORDERED: ROBAC PO (12:06)
[2022-01-25] MEDS ORDERED: ACET-1182 PO (12:06)
[2022-01-25] MEDS ORDERED: LISI20TA29 PO (12:06)
[2022-01-25] MEDS ORDERED: MAA30 PO (12:06)
[2022-01-25] MEDS ORDERED: CLON0.1T46 TD (12:06)
[2022-01-25] MEDS ORDERED: ALBU3SOL83 IH (12:06)
[2022-01-25] MEDS ORDERED: QUET25TA46 PO (12:06)
[2022-01-25] MEDS: MORPHINE SULFATE 4 MG/ML SYR IVP PRN (13:09)
[2022-01-25 14:50] LABS: ALBUMIN 2.9 g/dL (3.4-5.0); ANION GAP 16.3 (8-16); CARBON DIOXIDE 28.5 mmol/L (21-32); PHOSPHORUS 3.8 mg/dL (2.5-4.9); POTASSIUM 3.8 mmol/L (3.5-5.1); TOTAL BILIRUBIN 0.4 mg/dL (0.0-1.0)
[2022-01-25 14:59] LABS: CREATININE 4.5 mg/dL (0.6-1.3)
--- NOTE | 2022-01-25 15:34 | NUR ---
REPORT GIVEN TO ART AT [facility], DISCHARGE INSTRUCTION GIVEN TO PATIENT VERBALIZED UNDERSTANDING.
--- NOTE | 2022-01-25 16:18 | NUR ---
[facility] PICKED UP PATIENT STABLE UPON DISCHARGE, VITALS STABLE.
== END 2022-01-25 15:55 | DRG 52 ==
LOC: MED 05:45 → MTU 09:23
PROVIDERS: ADMIT Hospitalist; ATTEND Hospitalist
PROC: 5A1D70Z Performance of Urinary Filtration, Intermittent, Less than 6 Hours Per Day (ICD-10-PCS; principal; 2022-01-19)
PROC: 02HV33Z Insertion of Infusion Device into Superior Vena Cava, Percutaneous Approach (ICD-10-PCS; 2022-01-19)
PROC: B548ZZA Ultrasonography of Superior Vena Cava, Guidance (ICD-10-PCS; 2022-01-19)
PROC: 5A1D70Z Performance of Urinary Filtration, Intermittent, Less than 6 Hours Per Day (ICD-10-PCS; 2022-01-21)
PROC: 5A1D70Z Performance of Urinary Filtration, Intermittent, Less than 6 Hours Per Day (ICD-10-PCS; 2022-01-22)
PROC: 5A1D70Z Performance of Urinary Filtration, Intermittent, Less than 6 Hours Per Day (ICD-10-PCS; 2022-01-23)
PROC: 5A1D70Z Performance of Urinary Filtration, Intermittent, Less than 6 Hours Per Day (ICD-10-PCS; 2022-01-24)
DX: I67.4 Hypertensive encephalopathy (principal); I50.23 Acute on chronic systolic (congestive) heart failure; N18.6 End stage renal disease; I69.351 Hemiplegia and hemiparesis following cerebral infarction affecting right dominant side; E87.70 Fluid overload, unspecified; I13.2 Hypertensive heart and chronic kidney disease with heart failure and with stage 5 chronic kidney disease, or end stage renal disease; Z99.2 Dependence on renal dialysis; J45.909 Unspecified asthma, uncomplicated; N40.0 Benign prostatic hyperplasia without lower urinary tract symptoms; J44.9 Chronic obstructive pulmonary disease, unspecified; I50.9 Heart failure, unspecified; D64.9 Anemia, unspecified; E87.5 Hyperkalemia; I16.0 Hypertensive urgency; Z20.822 Contact with and (suspected) exposure to COVID-19; Z88.8 Allergy status to other drugs, medicaments and biological substances; Z79.899 Other long term (current) drug therapy; Z91.14 Patient's other noncompliance with medication regimen
CPT/HCPCS: 36415; 36569; 70450; 71045; 80053; 80305; 81003; 82140; 83605; 83735; 84100; 84484; 85025; 85610; 85730; 87040; 87081; 90935; 93005; 94640; 96372; 96374; 96375; 99291; J0360; J1644; J1815; J1956; J2270; Q0092; Q5106